=== PATIENT | male | born 1930 | race Caucasian/White ===

== ENCOUNTER 2016-09-21 11:00 | Inpatient (IN) | payer MEDICARE, BC ==
[~2016-09-21] VITALS: Ht 167.6 cm; Wt 101.2 kg
--- NOTE | ~2016-09-21 | CON ---
[facility] AGE[facility] 86 Y [address] ROOM: [place] [address] LOCATION: GPCU ADMIT DATE: 09/21/2016 Consultation DISCHARGE DATE: FAMILY PHYSICIAN: PHYSICIAN, UNKNOWN ATTENDING PHYSICIAN: RUDDY BADILLO DATE OF CONSULTATION: 09/21/2016 REFERRING PHYSICIAN: JADEN ELLIS MD HISTORY OF PRESENT ILLNESS: Mr. Mckinley is an 86-year-old male, who was admitted with history of GI bleed in the setting of bilateral pulmonary emboli from an outside hospital in [place], [place]. As per history available, he states he had an episode of "black stools" about 10 days ago and then with shortness of breath he was found to have bilateral pulmonary emboli at the outside hospital, was placed on Lovenox, and had episode of melena. As per history available, he also "vomited blood" with history of ulcers. He received blood transfusion and was transferred to this facility for further care. I went to see the patient in late afternoon, however, the patient was already gone for IVC filter placement. He also underwent Doppler study of his lower extremities, not revealing any deep venous thrombosis. The patient, however, has multiple comorbidities including "history of ulcers" as well as repair of aortic aneurysm about 10 years ago, which may have bearing to this episode of GI bleed. PAST MEDICAL HISTORY: 1. Coronary artery disease. 2. Hypertension. 3. COPD. 4. Obstructive sleep apnea. 5. Hyperlipidemia. 6. History of "ulcers.". 7. Obesity. PAST SURGICAL HISTORY: 1. Aortic aneurysm repair. 2. Coronary artery bypass graft surgery as well as coronary stenting. 3. Bilateral knee replacement. 4. Right total hip replacement. MEDICATIONS: On admission included; 1. Aspirin. [facility] AGE: 86 Y [address] ROOM: [place] [address] LOCATION: GPCU ADMIT DATE: 09/21/2016 Consultation DISCHARGE DATE: FAMILY PHYSICIAN: PHYSICIAN, UNKNOWN ATTENDING PHYSICIAN: RUDDY BADILLO 2. Tenormin. 3. Lantry-3. 4. Lactulose. 5. Lisinopril. 6. Amiodarone. 7. Lipitor. 8. Placed on Protonix drip. SOCIAL HISTORY: Remote smoking, quit in 1979. Denies alcohol use. Recently, he came back from a visit from [place]. ALLERGIES: THIAZIDE AND SULFA. REVIEW OF SYSTEMS: The 10-point review of systems is otherwise negative except as noted above. PHYSICAL EXAMINATION: GENERAL: Elderly male, in no acute distress. He is lying flat in bed. He is awake, alert, and appropriate. VITAL SIGNS: As noted, are presently stable. HEENT: Atraumatic and normocephalic. Pupils are round and reactive. Nonicteric sclerae. NECK: No JVD. No thyromegaly. No lymphadenopathy. CHEST: Bilateral poor air entry. HEART: S1 and S2 normal. ABDOMEN: Nondistended and obese without palpable tenderness or masses. EXTREMITIES: Mild edema. NEUROLOGIC: Awake, alert, and appropriate without any focal deficits. LABORATORY DATA: Labs are reviewed and showing hemoglobin of 9.3 and hematocrit of 28.5. Chemistry panel reveals BUN of 66 and creatinine of 1.1. Liver function tests are otherwise normal. PT/INR of 1.0. ASSESSMENT AND PLAN: This is an 86-year-old male with history of gastrointestinal bleed, possible presyncope, presenting with melena as well as "throwing up blood," suggestive of upper gastrointestinal origin. This is in the face of anticoagulation, previous history of "ulcers" as well as aortic aneurysm repair remotely. Main concern here will be bleeding ulcer with high-risk stigmata as well as possibility of an aortoenteric fistula. The patient seems to be stabilized for medical therapy, however, needs urgent endoscopy for diagnostic and therapeutic purposes. PATIENT'S NAME: LUZMA MOTA [facility] AGE: 86 Y [address] ROOM: [id number] [place] [id number] [facility] AD[facility] DATE: 09/21/2016 Consultation DISCHARGE DATE: FAMILY PHYSICIAN: PHYSICIAN, UNKNOWN ATTENDING PHYSICIAN: RUDDY BADILLO I explained to the patient as well as the family present in the room the procedure of upper endoscopy as well as extension of the procedure to enteroscopy to go further into the third part of the duodenum if no upper gastrointestinal lesion is found. Further recommendations pending the results of these studies. Thank you for this consult. JADEN ELLIS MD AM/jody /[id number] d: 09/21/161941 t: 09/24/16 1522, CONSULTATION REPORT
--- NOTE | ~2016-09-21 | CATH ---
Peripheral Interventional Report Demographics Patient Name NAKUL Regalado Gender Male Date of 1930 Age 86 year(s) Patient Number [id number] Date of Study 09/21/2016 Visit Number [id number] Room Number G6[address] [place] [id number] Ht 167.64 cm Wt 100 kg Referring Zach Gustafson Charlee Primary Physician Physician Performing [facility] Secondary Physician Physician Lili MARTIN Diagnostic [facility] Assisting Physician Physician Lili MARTIN Interventional [facility] Physician Building Consultant Physician Lili MARTIN Findings and Conclusions Peripheral Findings and Conclusions s/p successful IVC filter placement, retrievable celect cook filter for h/o acute bilateral PE's in a patient with acute GI bleed, and inability to anticoagulate. He has cardiopulmonary compromise, COPD on O2 at night and h/o CABG. IVC filter is indicated. Peripheral Recommendations Please w/u GI cause for bleeding and hopefully he will be able to get treatment for that and we can start anticoagulation after GI work up. It is imperative to start anticoagulation if able to for PE as soon as possible. Pt tolerated the procedure well without any acute complications. Procedure Description The patient was brought to the diagnostic cardiac catheterization-EP laboratory in the fasting, non-sedated state. Informed consent was obtained in the written and verbal form after the risks and benefits were explained. The patient had no further questions and agreed to proceed. The planned puncture-incision site(s) were shaved and prepped with Chloroprep and draped in the usual sterile manner. Conscious sedation and pain control medications were delivered by a registered nurse under physician guidance. Surface ECG rhythm, blood pressure measurement, and pulse oximetry were monitored throughout the procedure. Right femoral vein access obtained using US guidance and micropuncture needle. Inferior Venacava Filter Placement: After an Inferior Venocavagram was performed an IVC filter was placed below the level of the renal veins. Post filter placement revealed good position and no extravasation of contrast from IVC. Hemostasis: The sheath(s) was removed and manual compression was performed. Hemostasis was achieved. The patient was transferred to the nursing floor with continuous monitoring via cart accompanied by a nurse. The patient left the laboratory in stable condition. Procedure Procedure Type Peripheral vascular Intervention:IVC Filter:, Insertion Indications: PE. The procedure was explained in detail to the patient. Risks, complications and alternative treatments were reviewed. Written consent was obtained. Medications Reviewed with Patient prior to Procedure. Angiographic Findings Procedure Data Procedure Date Date: 09/21/2016Start: 04:48 PMEnd: 05:12 PM Entry Locations - Antegrade Percutaneous access was performed through the Right Femoral vein (Primary location). A 4 Fr sheath was inserted. Hemostasis was successfully obtained using Manual Compression. Closure Comments: Manual pressure held by Nikos . Procedure Medications Order and Administration + + +-------+------+ !Time !Medication !Dosage !Route ! + + +-------+------+ !09/21/2016 04:57 PM !Fentanyl !25 mcg !I.V. ! + + +-------+------+ Contrast Material - Isovue 24797 ml Fluoroscopy Time: Diagnostic: 2:06 minutes. Total: 2:06 minutes. Fluoroscopy Dose: Diagnostic: 199 mGy. Total: 199 mGy. Estimated Blood Loss: 45 ml. Medical History Allergies - Sulfa. - Other:(Thiazides, Hydrochlorothiazide). Risk Factors The patient risk factors include:prior PCI;prior CABG;treated hypercholesterolemia, treated hypertension, family history of premature CAD, chronic lung disease, last creatinine: 1.1 mg/dl, creatinine clearance: 69.44 ml/min, dyslipidemia and prior NM . Admission Data Admission Date: 09/21/2016 Admission Time: 12:23 PM Admit Source: Transfer acute care facility Insurance Payors: Medicare. Hemodynamics Condition: Rest O2 Consumption: Estimated: 265.19Heart Rate: 107 bpm Shunts Oxygen Values O2 Consumption 265.19 Signatures dtt: LILI FAITH dtd: 09/21/16 7618 Physician Self Edit
--- NOTE | ~2016-09-21 | CON ---
[facility] 86 Y [address] ROOM: [place] [address] LOCATION: GPCU ADMIT DATE: 09/21/2016 Consultation DISCHARGE DATE: FAMILY PHYSICIAN: PHYSICIAN, UNKNOWN ATTENDING PHYSICIAN: RUDDY BADILLO DATE OF CONSULTATION: 09/21/2016 REFERRING PHYSICIAN: JADEN ELLIS MD REASON FOR CARDIOLOGY CONSULT: Pulmonary embolus and need for evaluation for IVC filter. HISTORY OF PRESENT ILLNESS: This is an 86-year-old male who is transferred from [place], [place] after an abrupt onset of shortness of breath, dizziness, and diaphoresis. Evaluation in the outside emergency department, found that he had bilateral pulmonary embolus. Also during his evaluation he was noted to be having melena stools as well as ramona red blood stools. His hemoglobin in [place] 10.9. He has no complaints of chest pain. He does complain of shortness of breath, nausea, vomiting, and diarrhea. Of note, he is afebrile and complains of no palpitations or syncope. Due to this new finding of GI bleed with the presence of pulmonary embolus, we have been asked to evaluate the patient for a possible IVC filter placement. PAST MEDICAL HISTORY: 1. Coronary artery disease. 2. Hyperlipidemia. 3. Hypertension. 4. COPD. 5. Obstructive sleep apnea. 6. Chronic constipation. 7. B12 deficiency. 8. 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 PAST SURGICAL HISTORY: 1. Aortic aneurysm repair in 2004. 2. Coronary artery bypass grafting x3 vessels in 1988. 3. Coronary artery stenting in 1999. 4. Incisional hernia repair in 2006. 5. Bilateral knee replacement in 2004 and in 2005. FAMILY HISTORY: The patient's mother due to leukemia. His father due to a myocardial infarction. PAT[facility]GE: 86 Y [address] ROOM: [place] [address] LOCATION: GPCU ADMIT DATE: 09/21/2016 Consultation DISCHARGE DATE: FAMILY PHYSICIAN: PHYSICIAN, UNKNOWN ATTENDING PHYSICIAN: RUDDY BADILLO SOCIAL HISTORY: The patient is a former cigarette smoker. He smoked half a pack per day for a total of 20 years. He quit smoking in 1979. He denies alcohol or illicit drug use. CURRENT MEDICATIONS: 1. Asmanex two puffs inhaled in the evening. 2. Spiriva one puff inhaled in the evening. 3. Protonix 80 mg IV. 4. Amiodarone 100 mg p.o. daily. 5. Enulose 30 mL p.o. daily. 6. Lipitor 80 mg p.o. daily in the evening. 7. Metamucil 1 packet p.o. daily. 8. Prinivil 10 mg p.o. daily. 9. Tenormin 12.5 mg p.o. daily. 10. Multivitamin 1 tablet p.o. daily. 11. Vitamin B12 500 mcg p.o. daily. 12. Triacet topical cream twice daily. MEDICATION ALLERGIES: 1. Thiazide causing rash. 2. Sulfa. REVIEW OF SYSTEMS: Pertinent positive review of systems listed in HPI. All other review of systems evaluated and negative. PHYSICAL EXAMINATION: VITAL SIGNS: Temperature 98.3, pulse 95, respirations 18, blood pressure 119/57, O2 saturation 94% on 4 L nasal cannula. The patient weighs 100 kg. SKIN: [place], warm, and dry. EYES: Sclerae clear. No xanthelasmas. ENT: Oral mucosa is pink and moist. No jugular venous distention. No carotid bruits. CHEST: Respirations are even and unlabored. LUNGS: Clear to auscultation. He does have diminished breath sounds to bilateral lower lobes. HEART: Regular rate and rhythm. Normal S1 and S2. No murmurs, rubs, or gallops. ABDOMEN: Soft and nontender, but obese. MUSCULOSKELETAL: Gait is normal. EXTREMITIES: Peripheral pulses palpable. No clubbing or cyanosis noted. Does have trace lower extremity edema present. PSYCHIATRIC: Alert and oriented. Mood and affect are appropriate. PATIENT'S NAME: LUZMA MOTA [facility] AGE: 86 Y [address] ROOM: G[address] [place], [place] [address] [facility] ADMIT DATE: 09/21/2016 Consultation DISCHARGE DATE: FAMILY PHYSICIAN: PHYSICIAN, UNKNOWN ATTENDING PHYSICIAN: RUDDY BADILLO IMPRESSION AND PLAN: Per Dr. Lili Ponce: 1. Bilateral pulmonary embolus. 2. Acute gastrointestinal bleed. 3. History of coronary artery disease with coronary artery bypass grafting history. He has no complaints of angina currently. 4. Chronic obstructive pulmonary disease. 5. Obstructive sleep apnea. 6. Hypertension. 7. Hyperlipidemia. Once again, this is an 86-year-old male with acute GI bleed as well as a bilateral pulmonary embolus. With his history of coronary artery bypass grafting and aortic aneurysm repair, and o2 dependant copd, he is at high risk for cardiopulmonary compromise with another PE. We will review his CT results from the outside hospital. If there indeed is pulmonary embolus, we will proceed with IVC filter placement, due to inability to anticoagulate due to GI bleed. This case was discussed between Dr. Lili Ponce and Dr. Dia, vascular surgeon, and it has been determined that the benefits outweigh the risks, to proceed with IVC filter, if truly has a pulmonary embolus present. The risks and benefits of the procedure were discussed between Dr. Lili Ponce, the patient, and his family. They are agreeable to the procedure and there were no questions at this time. We will continue to monitor, evaluate, and treat as appropriate. Thank you for this consult. Thank you for allowing [facility] to interact in the care of the patient. DEEP JIMENEZ APRN FOR MD ARIADNE BRITTON/jody /[id number] d: 09/21/16 1613 t: 09/27/16 1224, CONSULTATION REPORT
--- NOTE | ~2016-09-21 | ECHO ---
Transthoracic Echocardiography Report (TTE) Demographics Patient Name LUZMA MOTA Date of Study 09/24/2016 Patient Number [id number] Visit Number [id number] Date of 1930 Room Number G6326 Accession Number [id number] Gender Male Age 86 year(s) Referring Zach Deshpande Operator Helper Brandi Tom RVT, Physician MD DEEPTI Romo Physician Interpreting Olivier Menjivar MD Wood Veneer Taper Physician Supervising Ordering Physician Zach Deshpande MD/ELIAS MARTIN Nurse Stress Programming Specialist Conclusions Contractility Score Summary At rest the following contractility abnormalities were noted: Hypokinesis of the Mid infero-lateral, the Basal infero-lateral, the Basal infero-septal and the Basal inferior segments. Contractility of all other segments appeared normal. Summary Technically difficult exam. The estimated left ventricular ejection fraction is 55%. The left ventricle is normal in size . Mild to moderate concentric left ventricular hypertrophy. Diastolic assessment reveals Grade II pseudonormal diastolic function . Mild to moderately dilated right ventricle. The left atrium is severely dilated. The right atrium is moderate to severely dilated. IVC measures 2.20 cm with inspiratory collapse. Mild mitral regurgitation by color Doppler. Mild tricuspid regurgitation by color Doppler. Procedure Type of Study TTE procedure:2D Echocardiogram, M-Mode, Doppler , Color Doppler. Procedure Date Date: 09/24/2016 Start: 09:52 AM Study Location: Inpatient Portable Technical Quality: Fair due to body habitus. Indications:Shortness of breath. Appropriate Use Criteria: 9 Patient Status: Routine HR: 80 bpm BP: 127/60 mmHg Allergies - Sulfa. - Other:(Thiazides, Hydrochlorothiazide). M-Mode/2D Measurements LV Diastolic Dimension: 5.42 cm LV Systolic Dimension: 3.58 cm LV Septum Diastolic: 1.37 cm LV PW Diastolic: 1.29 cm AO Root Dimension: 3.2 cm Cardiac Output: 6.35 l/min LA Dimension: 5.1 cm LVOT: 2.3 cm LVOT VTI: 19.1 cm RV Base: 3.88 cm LV Stroke volume: 79.32 ml RV Length: 7.58 cm TAPSE: 1.97 cm TDI-S': 15.4 cm/s Doppler Measurements AV Peak Velocity: 1.5 m/s MV Peak E-Wave: 0.76 m/s AV Peak Gradient: 9 mmHg MV Peak A-Wave: 0.56 m/s AV Mean Gradient: 7 mmHg MV E/A Ratio: 1.36 LVOT Peak Velocity: 0.94 m/s MV Deceleration Time: 264 msec TR Velocity:2.5 m/s PV Peak Velocity: 1.3 m/s TR Gradient:25 mmHg PV Peak Gradient: 6.76 mmHg Estimated RAP:8 mmHg Estimated PASP: 33 mmHg Estimated RVSP: 33 mmHg A' Septal Velocity: 0.08 m/s E' Septal Velocity: 0.09 m/s A' Lateral Velocity: 0.1 m/s E' Lateral Velocity: 0.1 m/s Findings Left Ventricle The left ventricle is normal in size . Mild to moderate concentric left ventricular hypertrophy. Right Ventricle Mild to moderately dilated right ventricle. Normal right ventricular function. Left Atrium The left atrium is severely dilated. Right Atrium The right atrium is moderate to severely dilated. IVC measures 2.20 cm with inspiratory collapse. Mitral Valve Mild-moderate mitral regurgitation by color Doppler. Aortic Valve The aortic valve is mildly sclerotic. Tricuspid Valve Mild tricuspid regurgitation by color Doppler. Pulmonic Valve The pulmonic valve is not well visualized. Trivial pulmonic valve regurgitation by color Doppler. Pericardial Effusion No evidence of pericardial effusion. Miscellaneous Visualized portions of the aortic root appear normal in size. Pleural Effusion No evidence of pleural effusion. Contractility Score LV regional wall motion:(0-Non visualized 1-Normal 2-Hypokinesis 3-Akinesis 4-Dyskinesis 5-Aneurysm) Signature dtt: Otto Aguayo (cardio) dtd: 09/24/16 0952 Physician Self Edit
--- NOTE | ~2016-09-21 | DS ---
PATIENT'S NAME: LUZMA MOTA [facility] AGE: 86 Y [address] ROOM: [address] [place], [place] [address] LOCATION: GPCU ADMIT DATE: 09/21/2016 Discharge Summary DISCHARGE DATE: 09/25/2016 FAMILY PHYSICIAN: Physician, Unknown ATTENDING PHYSICIAN: Janay Serrano PRINCIPAL DIAGNOSES: 1. Acute blood loss anemia. 2. Upper gastrointestinal bleed. 3. Gastric ulcer. 4. Bilateral pulmonary embolism. 5. Chronic hypoxic respiratory failure. 6. Chronic obstructive pulmonary disease, on 2 L of oxygen. 7. Coronary artery disease. 8. Atrial fibrillation. 9. Hypertension. 10. Morbid obesity. HOSPITAL COURSE: This is an 86-year-old gentleman with a past medical history of coronary artery disease, hypertension, COPD, and atrial fibrillation, on amiodarone, but not on any oral anticoagulation, presented to [facility] with bilateral pulmonary emboli noted on CAT scan of the chest. He also had multiple episodes of black stools and was having shortness of breath. He was transferred to the [facility] for further medical care. On arrival here, his hemodynamics were stable with the hemoglobin around 7. Cardiology consultation was made and an inferior vena cava filter was placed. Gastroenterology consultation was made and an upper endoscopy was done, which did show a big gastric ulcer, which was positive for chronic active gastritis on pathology, but was negative for H. pylori. He was placed on Protonix drip and then was later switched to oral Protonix. His hemoglobin did go below 7 twice and he was given 1 unit of PRBC. During the rest of the course of the hospitalization, his hemoglobin and hemodynamics remained stable. Of note, he had diarrhea and we checked for the C. diff on admission to the hospital and he was positive for that and he was treated with Flagyl and he recovered from C. difficile colitis uneventfully. Given this concern of bilateral pulmonary embolism, a DVT study was done, which did not show any deep venous thrombosis in the lower extremities. Echocardiography was done, which showed left ventricular ejection fraction of 35% with [id number] dilatation of the right ventricle. Cardiology, Dr. Aguayo, saw the patient and wanted to see this patient in 1 week and anticipated to start oral anticoagulation at this point. He will be scheduled to follow up with Gastroenterology in 4 weeks to do a re-scope to see the healing of the ulcer and then probably starting him on Coumadin as well. DISCHARGE MEDICATIONS: PATIENT'S NAME: LUZMA MOTA [facility] AGE: 86 Y [address] ROOM: [address] [place], [place] [address] LOCATION: [facility] ADMIT DATE: 09/21/2016 Discharge Summary DISCHARGE DATE: 09/25/2016 FAMILY PHYSICIAN: Physician, Unknown ATTENDING PHYSICIAN: Janay Serrano 1. Centrum Men Silver 1 tablet p.o. every day. 2. Amiodarone 100 mg p.o. every day. 3. Atenolol 12.5 mg p.o. every day. 4. Atorvastatin 80 mg p.o. every night at bedtime. 5. B12, 500 mcg p.o. every day. 6. Guaifenesin 400 mg p.o. every day. 7. Lisinopril 10 mg p.o. every day. 8. Flagyl 500 mg p.o. every 8 hours, stop on 10/02/2016. 9. Fish oil 1000 mg p.o. twice daily. 10. Protonix 40 mg p.o. twice daily. 11. Triamcinolone, apply as instructed. 12. Mometasone 2 puffs inhalation twice daily. 13. Spiriva 1 inhalation every night at bedtime. 14. Aspirin 81 mg p.o. every day. 15. Coenzyme Q10, 150 mg p.o. every day. 16. Garlic 1000 mg p.o. every day. 17. Lactulose 30 mL p.o. every day. 18. soft gel 1 capsule every night at bedtime. 19. 20 mg p.o. every day. 20. Furosemide 40 mg p.o. every day. 21. Psyllium 1 packet p.o. every day. 22. Milk of magnesia 30 mL p.o. every day p.r.n. 23. Tylenol 1000 mg p.o. every 6 hours p.r.n. pain. 24. Selenium sulfide 1 application topical twice daily. The new medication like mentioned metronidazole 500 mg p.o. q.8 hours and Protonix 40 mg p.o. b.i.d. for 12 weeks. ACTIVITY: As tolerated. DIET: Low-sodium diet. FOLLOWUP: As mentioned in the HPI with Dr. Aguayo on 10/04/2016 and GI in 4 to 6 weeks. All questions of the family were answered. I did explain the risk versus benefit of not starting anticoagulation at this point given IVC filter is in place and there is a big gastric ulcer with high likelihood of bleeding. Family and the patient himself understood the risks versus benefit and opted not to do anticoagulation until seen by Dr. Aguayo in [place] in 1 week. I spent 40 minutes in discharge planning, coordinating care, and answering question of the patient. PATIENT'S NAME: LUZMA MOTA [facility] AGE: 86 Y [address] ROOM: [place] [address] LOCATION: [facility] ADMIT DATE: 09/21/2016 Discharge Summary DISCHARGE DATE: 09/25/2016 FAMILY PHYSICIAN: Physician, Unknown ATTENDING PHYSICIAN: Janay Serrano MD SHAVON INIGUEZ/jody /[id number] d: 09/26/16 0243 t: 09/30/16 1507, DISCHARGE SUMMARY
--- NOTE | ~2016-09-21 | ENPV ---
Vascular Lower Extremities DVT Study Procedure Demographics Patient Name LUZMA MOTA Date of Study 09/21/2016 Patient Number [id number] Gender Male Date of 1930 Age 86 Visit Number [id number] Height Accession Number [id number] Weight Room Number G6326 BSA BMI Referring Zach Deshpande Interpreting Jhon Santana MD Physician Physician Rosario Pearson MD Physician Steven Ponce Lpc Physician Lili MARTIN Television Installer Helper Brandi Tom T, [facility] Conclusions Summary TECHNIQUE: The veins of the lower extremities on the right and the left were evaluated from the groin to the ankle using toledo scale, compression, and augmentation. Venous hemodynamics were evaluated with color flow and spectral Doppler. FINDINGS: The deep veins of the legs bilaterally show normal color flow and compressibility without thrombosis. IMPRESSION: NEGATIVE BILATERAL LOWER EXTREMITY VENOUS DOPPLER. Procedure Type of Study: Veins:Lower Extremities DVT Study, Venous Duplex Lower Extremity Bilateral. Indications for Study:Painful Respiration, Pain and Pulmonary embolism. Appropriate Use Criteria:8 Patient Status:STAT. Study Location:Inpatient Portable. Technical Quality:Adequate visualization. - Preliminary reported to:Dr. Cobb at 1420. Velocities are measured in cm/s ; Diameters are measured in cm Right Lower Extremities DVT Study Measurements Right 2D and Doppler Measurements + + + + +------+------+ + !Location !Visualized!Compressibility!Thrombosis!Signal!Reflux!Reflux ! ! ! ! ! ! ! !(sec) ! + + + + +------+------+ + !GSV Thigh !Yes !Yes !None !Phasic! ! ! + + + + +------+------+ + !Common !Yes !Yes !None !Phasic! ! ! !Femoral ! ! ! ! ! ! ! + + + + +------+------+ + !Prox !Yes !Yes !None !Phasic! ! ! !Femoral ! ! ! ! ! ! ! + + + + +------+------+ + !Mid Femoral!Yes !Yes !None !Phasic! ! ! + + + + +------+------+ + !Dist !Yes !Yes !None !Phasic! ! ! !Femoral ! ! ! ! ! ! ! + + + + +------+------+ + !Popliteal !Yes !Yes !None !Phasic! ! ! + + + + +------+------+ + !PTV !Yes !Yes !None !Phasic! ! ! + + + + +------+------+ + !Peroneal !Yes !Yes !None !Phasic! ! ! + + + + +------+------+ + Left Lower Extremities DVT Study Measurements Left 2D and Doppler Measurements + + + + +------+------+ + !Location !Visualized!Compressibility!Thrombosis!Signal!Reflux!Reflux ! ! ! ! ! ! ! !(sec) ! + + + + +------+------+ + !GSV Thigh !Yes !Yes !None !Phasic! ! ! + + + + +------+------+ + !Common !Yes !Yes !None !Phasic! ! ! !Femoral ! ! ! ! ! ! ! + + + + +------+------+ + !Prox !Yes !Yes !None !Phasic! ! ! !Femoral ! ! ! ! ! ! ! + + + + +------+------+ + !Mid Femoral!Yes !Yes !None !Phasic! ! ! + + + + +------+------+ + !Dist !Yes !Yes !None !Phasic! ! ! !Femoral ! ! ! ! ! ! ! + + + + +------+------+ + !Popliteal !Yes !Yes !None !Phasic! ! ! + + + + +------+------+ + !PTV !Yes !Yes !None !Phasic! ! ! + + + + +------+------+ + !Peroneal !Yes !Yes !None !Phasic! ! ! + + + + +------+------+ + Signature dtt: Chiki Ferreira dtd: 09/21/16 1347 Physician Self Edit
--- NOTE | ~2016-09-21 | HP ---
PATIENT'S NAME: LUZMA MOTA [facility] AGE: 86 Y [address] ROOM: [address] [place], [place] [address] LOCATION: GPCU ADMIT DATE: 09/21/2016 History & Physical DISCHARGE DATE: FAMILY PHYSICIAN: PHYSICIAN, UNKNOWN ATTENDING PHYSICIAN: RUDDY BADILLO DATE OF SERVICE: CHIEF COMPLAINT: GI bleed. HISTORY OF PRESENT ILLNESS: This is an an 86-year-old male, with a past medical history of coronary artery disease, status post CABG and status post two stents, AAA status post repair, and history of duodenal ulcer, who was transferred from [place] to [facility] for higher level of care. History was obtained from the patient. He reported that a week and a half ago, that he had some constipation and took some stool softeners for that, and after that, he had one episode of black stool. He also stated that at around the same time that he had some left flank pain, which was on and off . Severity of the left flank pain, the patient rates at 5/10. There was no associated nausea or vomiting. He reported that yesterday, at around 10 a.m. while he was sitting down on his porch, he just did not feel right. He felt sick, so he got up to go into the bathroom. When he got into the bathroom, he felt chills, clammy, and a tingling sensation all over his body, and so he requested the to call the EMS team. On arrival to [facility], the patient was found to have a PE, and he was started on Lovenox. This morning, the patient reported that he felt better this morning. However, hemoglobin was observed to have dipped and patient had the passage of black stool, and so he was transfused with two units of PRBC and he was transferred over to [facility]. On arrival to [facility], while patient was being prepped, he had an episode of vomiting of bright red blood, and also had another episode of passage of black stool. He denies headache. He denies dizziness. He denies fever. 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 He denies any family history of blood clot. He denies urinary symptoms. He denies chest pain. He denies neck pain or back pain. REVIEW OF SYSTEMS: The 13 elements of review of systems were asked, and are as documented in the HPI. The others are negative. PAST MEDICAL HISTORY: Includes 1. Coronary artery disease, status post CABG and x2 stents after that. PATIENT'S NAME: LUZMA MOTA [facility] AGE: 86 Y [address] ROOM: [address] [place], [place] [address] [facility] ADMIT DATE: 09/21/2016 History & Physical DISCHARGE DATE: FAMILY PHYSICIAN: PHYSICIAN, UNKNOWN ATTENDING PHYSICIAN: RUDDY BADILLO 2. AAA, status post repair. 3. COPD. 4. Osteoarthritis. 5. History of duodenal ulcer. 6. Constipation. 7. Dyslipidemia. PAST SURGICAL HISTORY: Includes 1. AAA repair. 2. Three-vessel bypass. 3. Bilateral total knee arthroplasty. 4. Right total hip replacement. SOCIAL HISTORY: He stopped smoking in 1979. He smoked for about thirty years half a pack per day. He denies use of alcohol. He denies use of any illicit drugs. FAMILY HISTORY: Mother at age of 79, had leukemia. Father also in his 70s, had some heart problem. PHYSICAL EXAMINATION: VITAL SIGNS: Temperature was 98.3, blood pressure was 119/57, oxygen saturation was 95% on 4 L of nasal cannula, pulse was 95, and respiratory rate was 12. GENERAL: Revealed a pleasant, elderly, male, who is alert, awake, and oriented x3, not in any form of respiratory distress or painful distress. NEUROLOGIC: Cranial nerves II through XII intact bilaterally. Sensory was intact bilaterally. Power in both upper extremities was 4. Power in both lower extremities was 2. HEENT: Normocephalic and atraumatic. Pupils were equal and reactive to light bilaterally. Pharynx is normal. Mucosa was slightly dry. Ears: No obvious ear discharge or drainage. NECK: Supple. No area of tenderness. No lymphadenopathy. CARDIOVASCULAR SYSTEM: Normal S1 and S2. Regular rate and rhythm. CHEST: Clear to auscultation bilaterally. ABDOMEN: Soft and nondistended. No area of tenderness. He has a midline healed surgical scar. Positive bowel sounds. EXTREMITIES: There is no joint swelling or erythema or tenderness. SKIN: No rash or skin breakdown. LABORATORY DATA: Labs at the referral hospital, H and H after transfusion with two units of PRBC are 10.3/32.1 and WBC is 15.9. PATIENT'S NAME: LUZMA MOTA [facility] AGE: 86 Y [address] ROOM: [place] [address] [facility] ADMIT DATE: 09/21/2016 History & Physical DISCHARGE DATE: FAMILY PHYSICIAN: PHYSICIAN, UNKNOWN ATTENDING PHYSICIAN: RUDDY BADILLO ASSESSMENT AND PLAN: This is an 86-year-old male with gastrointestinal bleed, 1. Upper gastrointestinal bleed present on admission, probably from his duodenal ulcer, which may have been precipitated by the anticoagulation, which he was started on. We will get a GI consult. We will monitor his H and H closely. 2. Acute blood loss anemia. His last H and H was 10.3. We will repeat an H and H now, given the fact that the patient has had another episode of black stool and bright red blood, and has recently vomited blood. Present on admission. 3. Acute hypoxic respiratory failure, probably from the acute blood loss anemia. Present on admission. 4. Bilateral pulmonary embolism per report by the transferring doctor. We will get the official report of the chest which was done, and we will hold off on anticoagulation secondary to the bleeding. We will get a Cardiology consult for an IVC filter placement. Present on admission. 5. Leukocytosis present on admission. This maybe reactive. However, we will check UA and urine culture, and other sepsis workup as well is going to be done, but for now, we will hold off on the antibiotics, but if the patient develops a temperature of 100.4 and over, we will start the patient on antibiotics. 6. Coronary artery disease, status post CABG and stents. No angina right now. 7. Abdominal aortic aneurysm, status post repair. The line of management was explained to the patient, whose questions were answered, and he had no further questions at this time. RUDDY BADILLO MD ODO/modl /[id number] D: [id number] T: [id number] HISTORY & PHYSICAL
[2016-09-21] MEDS ORDERED: TENORMIN25 MG PO (13:35)
[2016-09-21] MEDS ORDERED: ASPIRIN EC81 MG PO (13:35)
[2016-09-21] MEDS ORDERED: CO Q-10150 MG PO (13:35)
--- NOTE | 2016-09-21 13:37 | NUR ---
PT is 86 y/o male admit for bilat pulm emboli and bloody stools for hospitalist. Allergy to sulfa,HCTZ,thiazide. PT alert and oriented x3. Resides at home with his . Hx CABG,htn,hypercholest,stents x2,MO,AAA repair,edema in legs and feet,COPD,sleep apnea-didn't bring CPAP with him, pneumonia,gerd. Pt states he and his spent the weekend in [place] and he felt somewhat constipated and took a stimulant of some kind and had 1 black stool on Saturday after they returned home. He reports his stools were ok on and Sat. Yesterday am, he felt constipated again and took another stimulant. Shortly after he states he got the cold sweats and didn't feel good so his called the unit and he was taken to [facility]. He states he had 1 black stool around midnight last noc. After arrival here, he's had another bloody stool and some bloody emesis. Family at bedside.
[2016-09-21] MEDS ORDERED: FISH OIL 1,0001 EAC1 PO (13:38)
[2016-09-21] MEDS ORDERED: GARLIC1000 MG PO (13:39)
[2016-09-21] MEDS ORDERED: ASMANEX220 MC1 INH (13:40)
[2016-09-21] MEDS ORDERED: CONSTULOSE10 GM/15 M PO (13:40)
[2016-09-21] MEDS ORDERED: PROSTAMEN SOFT1 EACH PO (13:41)
[2016-09-21] MEDS ORDERED: SPIRIVA HANDIHA1 KIT INH (13:41)
[2016-09-21] MEDS ORDERED: TRIAMCINOLONE 080 GM TOP (13:42)
[2016-09-21] MEDS ORDERED: LIPITOR40 MG PO (13:43)
[2016-09-21] MEDS ORDERED: GUAIFENESIN400 MG PO (13:44)
[2016-09-21] MEDS ORDERED: LUTEIN20 M1 PO (13:44)
[2016-09-21] MEDS ORDERED: CENTRUM SILVER1 TAB PO (13:45)
[2016-09-21] MEDS ORDERED: LASIX40 MG PO (13:46)
[2016-09-21] MEDS ORDERED: PRINIVIL (ZESTR20 MG PO (13:46)
[2016-09-21] MEDS ORDERED: MILK OF MA400 MG/5 M PO (13:47)
[2016-09-21] MEDS ORDERED: METAMUCIL PACKE1 PKT PO (13:47)
[2016-09-21] MEDS ORDERED: B-12500 MCG PO (13:48)
[2016-09-21] MEDS ORDERED: TYLENOL EXTRA500 MG PO (13:48)
[2016-09-21] MEDS ORDERED: SELENIUM SULFI120 ML TOP (13:49)
[2016-09-21] MEDS ORDERED: CORDARONE,PACE200 MG PO (13:53)
[2016-09-21 15:40] LABS: HEMATOCRIT 28.5 % (33.0-50.0); HEMOGLOBIN 9.3 g/dL (11.0-16.0)
[2016-09-21 15:41] LABS: ALBUMIN 2.5 gm/dL (3.5-5.0); ALK PHOS 49 IU/L (33-138); ALT 20 IU/L (12-78); ANION GAP 11.9 (10.0-19.0); AST 16 IU/L (10-40); BLOOD UREA NITROGEN 66 mg/dL (6-24); CALCIUM 7.6 mg/dL (8.5-10.5); CHLORIDE 115 mMol/L (96-110); CO2 24 mMol/L (22-32); CREATININE 1.1 mg/dL (0.6-1.3); ESTIMATED GFR (MDRD EQUATION) > 60; PHOSPHORUS 2.3 mg/dL (2.5-4.9); POTASSIUM 4.9 mMol/L (3.7-5.1); SODIUM 146 mMol/L (135-145); TOTAL BILIRUBIN 0.4 mg/dL (0.0-1.5); TOTAL PROTEIN 5.4 g/dL (6.0-8.4)
[2016-09-21 17:22] LABS: INR - (THERAPEUTIC) 1.02 (0.92-1.07); PROTIME 10.7 SECONDS (9.8-11.4)
--- NOTE | 2016-09-21 17:46 | NUR ---
Significant Event: PT A&O x3. VSS, O2 at 3L per nasal cannula. PT had bloody stool and emesis after arrival to floor. IV to R)upper arm. PT had IVC filter placed, R)groin site c/d/i, back to room at 1715, must lay flat until 1914. NPO. Protonix gtt running, NS running at 75ml/hr. Follow up:
[2016-09-21 22:27] LABS: HEMATOCRIT 28.3 % (33.0-50.0); HEMOGLOBIN 9.2 g/dL (11.0-16.0)
[2016-09-21 22:33] LABS: BILIRUBIN URINE NEGATIVE (NEGATIVE); BLOOD URINE NEGATIVE /UL (NEGATIVE); COLOR URINE YELLOW (YELLOW); GLUCOSE URINE NEGATIVE (NEGATIVE); KETONE URINE NEGATIVE (NEGATIVE); LEUKOCYTES URINE NEGATIVE /UL (NEGATIVE); NITRITE URINE NEGATIVE (NEGATIVE); PROTEIN URINE NEGATIVE (NEGATIVE); SPEC GRAVITY URINE 1.015 (1.003-1.035); TURBIDITY URINE CLEAR (CLEAR); UROBILINOGEN URINE NORMAL (NORMAL)
[2016-09-21 22:43] LABS: ALBUMIN 2.7 gm/dL (3.5-5.0); ALK PHOS 46 IU/L (33-138); ALT 21 IU/L (12-78); AST 15 IU/L (10-40); CALCIUM 7.7 mg/dL (8.5-10.5); CHLORIDE 115 mMol/L (96-110); CO2 23 mMol/L (22-32); CREATININE 1.1 mg/dL (0.6-1.3); ESTIMATED GFR (MDRD EQUATION) > 60; POTASSIUM 4.9 mMol/L (3.7-5.1); TOTAL BILIRUBIN 0.4 mg/dL (0.0-1.5); TOTAL PROTEIN 5.9 g/dL (6.0-8.4)
[2016-09-21 22:47] LABS: ANION GAP 12.9 (10.0-19.0); BLOOD UREA NITROGEN 64 mg/dL (6-24); SODIUM 146 mMol/L (135-145)
[2016-09-22 03:27] LABS: HEMATOCRIT 26.1 % (33.0-50.0); HEMOGLOBIN 8.3 g/dL (11.0-16.0); MCH 30.9 pg (27.0-34.0); MCHC 31.8 gm/dL (32.0-36.5); MPV 9.8 fl (9.4-12.4); PLATELET COUNT 151 K/uL (150-450); RBC 2.69 M/uL (3.50-5.50); WBC 15.5 K/uL (4.0-11.0)
[2016-09-22 03:45] LABS: ALBUMIN 2.6 gm/dL (3.5-5.0); ALK PHOS 42 IU/L (33-138); ALT 18 IU/L (12-78); ANION GAP 10.8 (10.0-19.0); AST 14 IU/L (10-40); BLOOD UREA NITROGEN 60 mg/dL (6-24); CALCIUM 7.6 mg/dL (8.5-10.5); CHLORIDE 115 mMol/L (96-110); CO2 25 mMol/L (22-32); CREATININE 1.1 mg/dL (0.6-1.3); ESTIMATED GFR (MDRD EQUATION) > 60; MAGNESIUM 2.1 mg/dL (1.8-2.6); POTASSIUM 4.8 mMol/L (3.7-5.1); SODIUM 146 mMol/L (135-145); TOTAL BILIRUBIN 0.3 mg/dL (0.0-1.5); TOTAL PROTEIN 5.6 g/dL (6.0-8.4)
--- NOTE | 2016-09-22 04:31 | NUR ---
Significant Event: Patient A/Ox3. VSS on 3-4L NC. Patient was seen by GI last night and taken down for a scope right away. EGD completed, an ulcer was found in patient's stomach, it was injected with epi and cauterized. Upon returning to the floor, patient's vitals were stable. He did have one large bloody stool right after returning, but has not had any since. Urine sent down for UA, still need c-diff sample. NS changed to D5W due to sodium level of 146. Protonix gtt at 10ml/hr. Patient is NPO except for ice chips and medications. Follow up: Continue plan of care
[2016-09-22 04:47] LABS: ABSOLUTE NEUTROPHIL CT (ANC) 8.5 K/uL (1.4-9.0); LYMPHOCYTE # 6.7 K/uL (0.8-4.0); LYMPHOCYTE % 43 %; MONOCYTE # 0.3 K/uL (0.0-1.0); SEGMENTED NEUTROPHIL # 8.5 K/uL (1.4-9.0); SEGMENTED NEUTROPHIL % 55 %
[2016-09-22 09:27] LABS: HEMATOCRIT 27.3 % (33.0-50.0); HEMOGLOBIN 8.3 g/dL (11.0-16.0)
[2016-09-22 16:52] LABS: HEMATOCRIT 22.1 % (33.0-50.0); MPV 9.8 fl (9.4-12.4); RBC 2.35 M/uL (3.50-5.50); RDW-CV 15.9 % (11.9-14.6); WBC 14.7 K/uL (4.0-11.0)
[2016-09-22 16:57] LABS: HEMOGLOBIN 7.2 g/dL (11.0-16.0); MCH 30.6 pg (27.0-34.0); MCHC 32.6 gm/dL (32.0-36.5)
[2016-09-22 16:58] LABS: PLATELET COUNT 90 K/uL (150-450)
[2016-09-22 17:03] LABS: ABSOLUTE NEUTROPHIL CT (ANC) 7.9 K/uL (1.4-9.0); BANDED NEUTROPHIL # 0.3 K/uL (0.0-0.1); BANDED NEUTROPHILS % 2 %; LYMPHOCYTE # 5.1 K/uL (0.8-4.0); LYMPHOCYTE % 35 %; MONOCYTE # 1.5 K/uL (0.0-1.0); SEGMENTED NEUTROPHIL # 7.6 K/uL (1.4-9.0); SEGMENTED NEUTROPHIL % 52 %
--- NOTE | 2016-09-22 18:58 | NUR ---
Significant Event: Alert & oriented. VSS, afebrile, 2-4L O2, SOB with activity. 2 bloody stools this shift, Cdiff positive. Hgb dropped to 7.2, 1 unit pRBCs hung at shift change. Follow up: Recheck H&H after 1 unit of pRBCs given
[2016-09-22 22:10] LABS: HEMATOCRIT 25.2 % (33.0-50.0); HEMOGLOBIN 8.2 g/dL (11.0-16.0)
[2016-09-23 04:27] LABS: HEMATOCRIT 21.4 % (33.0-50.0); MCV 95.5 fl (83.0-98.0); MPV 9.8 fl (9.4-12.4); RBC 2.24 M/uL (3.50-5.50); RDW-CV 15.9 % (11.9-14.6); WBC 10.7 K/uL (4.0-11.0)
--- NOTE | 2016-09-23 04:29 | NUR ---
Significant Event: VSS on 3L O2 per NC. SOB with activity. Afebrile. SBP's 90's-110's. HR's 70's-80's. A/O x3. Up with walker and 1A. Received 1 unit of PRBC's yesterday at 1830. IV to R) upper arm has D5W running at 75 ml/hrs. Order to switch to LR after this bag finishes. Protonix gtt running. Contact isolation for C. diff. No BM's this shift. Need BM sample for H.pylori antigen. Full liquid diet. R) groin site for IVC filter is C/D/I. Order to start Zosyn if temp is greater than 100. Follow up: Continue with plan of care.
[2016-09-23 04:35] LABS: HEMOGLOBIN 6.7 g/dL (11.0-16.0); MCH 29.9 pg (27.0-34.0); MCHC 31.3 gm/dL (32.0-36.5); PLATELET COUNT 126 K/uL (150-450)
[2016-09-23 04:43] LABS: ANION GAP 10.1 (10.0-19.0); BLOOD UREA NITROGEN 42 mg/dL (6-24); CHLORIDE 109 mMol/L (96-110); CO2 27 mMol/L (22-32); ESTIMATED GFR (MDRD EQUATION) > 60; POTASSIUM 4.1 mMol/L (3.7-5.1); SODIUM 142 mMol/L (135-145)
[2016-09-23 04:44] LABS: CALCIUM 7.2 mg/dL (8.5-10.5)
[2016-09-23 05:24] LABS: ABSOLUTE NEUTROPHIL CT (ANC) 4.9 K/uL (1.4-9.0); BANDED NEUTROPHIL # 0.3 K/uL (0.0-0.1); BANDED NEUTROPHILS % 3 %; LYMPHOCYTE # 5.1 K/uL (0.8-4.0); LYMPHOCYTE % 48 %; MONOCYTE # 0.5 K/uL (0.0-1.0); SEGMENTED NEUTROPHIL # 4.6 K/uL (1.4-9.0); SEGMENTED NEUTROPHIL % 43 %
[2016-09-23 09:21] LABS: HEMOGLOBIN 7.9 g/dL (11.0-16.0)
--- NOTE | 2016-09-23 09:25 | NUR ---
CONSULT RECEIVED, PER ROUTINE C-DIFF ORDERS. WILL PROVIDE DIET ED APPROPRIATE, PRIOR TO D/C.
[2016-09-23 15:30] LABS: HEMATOCRIT 23.5 % (33.0-50.0)
[2016-09-23 15:31] LABS: HEMOGLOBIN 7.8 g/dL (11.0-16.0)
--- NOTE | 2016-09-23 19:15 | NUR ---
Significant Event: A&O. VSS, afebrile, 2 L O2. Held antihypertensives. 1 assist. 1 BM this shift. Continue H&H Q6 hours. attempted central line, PICC line RN not available on weekend.
[2016-09-23 21:26] LABS: HEMATOCRIT 23.2 % (33.0-50.0)
[2016-09-23 21:27] LABS: HEMOGLOBIN 7.6 g/dL (11.0-16.0)
--- NOTE | 2016-09-24 03:12 | NUR ---
Significant Event: A&Ox3, VSS on 2L O2. Protonix gtt into right upper arm with no complications. Gtt to be shut off at 0800. Q6hr HGB checks, notify hospitalists after each result, trending down. Denies pain. Transfers with 1PA-SBA, walker/GB to bathroom. No BM this shift. Full liquid diet. Follow up: PICC line placement today.
[2016-09-24 03:28] LABS: HEMATOCRIT 23.5 % (33.0-50.0)
[2016-09-24 03:30] LABS: HEMOGLOBIN 7.7 g/dL (11.0-16.0)
[2016-09-24 03:42] LABS: ANION GAP 12.3 (10.0-19.0); CALCIUM 7.5 mg/dL (8.5-10.5); CHLORIDE 110 mMol/L (96-110); CO2 25 mMol/L (22-32); CREATININE 0.9 mg/dL (0.6-1.3); ESTIMATED GFR (MDRD EQUATION) > 60; POTASSIUM 4.3 mMol/L (3.7-5.1); SODIUM 143 mMol/L (135-145)
[2016-09-24 03:44] LABS: BLOOD UREA NITROGEN 19 mg/dL (6-24)
[2016-09-24 10:19] LABS: HEMATOCRIT 24.3 % (33.0-50.0)
[2016-09-24 10:27] LABS: HEMOGLOBIN 7.8 g/dL (11.0-16.0)
--- NOTE | 2016-09-24 16:59 | NUR ---
Significant Event: A/O x3, cooperative with cares. VSS, SBPs 100-120s, HRs 60-80s, oxygen at 2 liters. No c/o pain. Last Hgb 7.8; changed to every 12 hours. Protonix gtt dc'd; initial dose of oral protonix gtt given. Up with assist of 1 to chair et bathroom. Family in room Follow up: possible d/c tomorrow if Hgb remains stable; next Hgb at 2100
--- NOTE | 2016-09-24 18:06 | NUR ---
Introduced self and role of care management to patient, his and son. Patient and leave on the edge of [place]. He uses a cane at home but has been using a walker here. He does have a walker at home if needed. They hope he will be able to go home. They deny discharge needs. Will follow.
[2016-09-24 21:22] LABS: HEMATOCRIT 24.7 % (33.0-50.0); HEMOGLOBIN 8.1 g/dL (11.0-16.0)
--- NOTE | 2016-09-25 04:00 | NUR ---
Significant Event:PT AAOX3.VERY PLEASANT WITH STAFF AND CARES. DENIES PAIN WHEN ASKED. UP WITH 1 ASSIST GAIT BELT WALKER. DOES WELL WITH TRANSFERS. CONTIENT OF BOWEL AND BLADDER. DOES HAVE 2 BM DURING SHIFT. MAROON IN COLOR. LAST HGB AR 2100 WAS 8.1. CONTINUES TO WEAR 2L NC. LUNG SOUNDS CLEAR/DIMINISHED. EDEMA TO LOWER BILAT LEGS.FULL LIQUID DIET. SL TO LEFT UPPER SHOULDER AREA. USES CALL LIGHT APPROP. Follow up:
[2016-09-25 04:35] LABS: HEMATOCRIT 24.1 % (33.0-50.0); MCV 93.8 fl (83.0-98.0); MPV 9.9 fl (9.4-12.4); RBC 2.57 M/uL (3.50-5.50); RDW-CV 15.9 % (11.9-14.6)
[2016-09-25 04:42] LABS: HEMOGLOBIN 7.9 g/dL (11.0-16.0); MCH 30.7 pg (27.0-34.0); MCHC 32.8 gm/dL (32.0-36.5); PLATELET COUNT 152 K/uL (150-450)
[2016-09-25 04:45] LABS: ANION GAP 10.4 (10.0-19.0); BLOOD UREA NITROGEN 14 mg/dL (6-24); CALCIUM 7.9 mg/dL (8.5-10.5); CHLORIDE 109 mMol/L (96-110); CO2 29 mMol/L (22-32); CREATININE 0.9 mg/dL (0.6-1.3); ESTIMATED GFR (MDRD EQUATION) > 60; POTASSIUM 4.4 mMol/L (3.7-5.1); SODIUM 144 mMol/L (135-145)
[2016-09-25 05:40] LABS: ABSOLUTE NEUTROPHIL CT (ANC) 4.7 K/uL (1.4-9.0); BANDED NEUTROPHIL # 0.4 K/uL (0.0-0.1); BANDED NEUTROPHILS % 4 %; LYMPHOCYTE # 4.7 K/uL (0.8-4.0); LYMPHOCYTE % 47 %; MONOCYTE # 0.1 K/uL (0.0-1.0); SEGMENTED NEUTROPHIL # 4.3 K/uL (1.4-9.0); SEGMENTED NEUTROPHIL % 43 %
[2016-09-25 09:09] LABS: HEMOGLOBIN 7.7 g/dL (11.0-16.0)
[2016-09-25] MEDS ORDERED: FLAGYL500 MG PO (14:29)
[2016-09-25] MEDS ORDERED: PROTONIX40 MG PO (14:30)
--- NOTE | 2016-09-25 16:18 | NUR ---
PATIENT IS A/OX3, VSS ON ROOM AIR DURING THE DAY, WEARS 2L O2 @ NIGHT. DISMISSAL INSTRUCTIONS, NEW MEDICATIONS, OUTPATIENT EGD INSTRUCTIONS GONE OVER WITH PATIENT AND FAMILY. PATIENT HAD QUESTION ON ABOUT SEEING DMITRY AGUILERA APRN IN [place] AND POSSIBLE EGD ALSO. TOLD PATIENT AND FAMILY THEY WOULD HAVE TO DISCUSS THOSE OPTIONS WITH DMITRY AT FOLLOW-UP APT. NEXT WEEK. FOLLOW-UP APPOINTMENTS GONE OVER SEVERAL TIMES WITH PATIENT AND FAMILY ON WHERE THEY ARE AT. NO FURTHER QUESITONS AT THIS TIME. IV TO LEFT SHOULDER REMOVED WITHOUT DIFFICULTLY. ALL BELONGINGS SENT HOME WITH PATIENT AND FAMILY. PATIENT GETS UP SBA WITH WALKER/GAIT BELT.
--- NOTE | 2016-09-25 16:36 | NUR ---
I visited with the patient and his before he was dismissed. I explained the role of the hospitalist and asked if they had any discharge concerns. They were very interested in the hospitalist program and had many questions. They did not have any discharge concerns.
[2016-11-21] MEDS ORDERED: ASPIRIN325 MG PO (15:54)
[2016-11-21] MEDS ORDERED: IRON325 M1 PO (15:58)
[2016-11-21] MEDS ORDERED: ZANTAC (NON-FO150 MG PO (16:07)
[2016-11-21] MEDS ORDERED: CPAP INH (16:10)
[2016-11-21] MEDS ORDERED: OXYGEN M-15 INH (16:11)
[2016-11-26] MEDS ORDERED: PRILOSEC20 MG PO (12:04)
== END 2016-09-25 15:20 | disposition disaster alternative care site (69) | DRG 356 ==
LOC: GPCU 12:23
PROVIDERS: Internal Medicine; ADMIT Hospitalist
PROC: B54DZZZ Ultrasonography of Bilateral Lower Extremity Veins (ICD-10-PCS; principal; 2016-09-21)
PROC: 06H03DZ Insertion of Intraluminal Device into Inferior Vena Cava, Percutaneous Approach (ICD-10-PCS; principal; 2016-09-21)
PROC: 0W3P8ZZ Control Bleeding in Gastrointestinal Tract, Via Natural or Artificial Opening Endoscopic (ICD-10-PCS; principal; 2016-09-21)
PROC: 30233N1 Transfusion of Nonautologous Red Blood Cells into Peripheral Vein, Percutaneous Approach (ICD-10-PCS; 2016-09-22)
PROC: B246ZZZ Ultrasonography of Right and Left Heart (ICD-10-PCS; 2016-09-24)
DX: K25.0 Acute gastric ulcer with hemorrhage (principal); I26.99 Other pulmonary embolism without acute cor pulmonale; J96.01 Acute respiratory failure with hypoxia; D62 Acute posthemorrhagic anemia; D72.829 Elevated white blood cell count, unspecified; E78.5 Hyperlipidemia, unspecified; G47.33 Obstructive sleep apnea (adult) (pediatric); I25.10 Atherosclerotic heart disease of native coronary artery without angina pectoris; I11.9 Hypertensive heart disease without heart failure; J44.9 Chronic obstructive pulmonary disease, unspecified; M19.90 Unspecified osteoarthritis, unspecified site; Z95.1 Presence of aortocoronary bypass graft; Z96.641 Presence of right artificial hip joint; Z96.653 Presence of artificial knee joint, bilateral; Z68.35 Body mass index [BMI] 35.0-35.9, adult; Z87.891 Personal history of nicotine dependence; E66.01 Morbid (severe) obesity due to excess calories; I48.91 Unspecified atrial fibrillation
CPT/HCPCS: A9270; C1880; C9113; G0237; J1364; J1644; J2405; J3010; J7030; J7040; J7050; J7060; J7120; P9016

== ENCOUNTER → 2016-09-21 | Outpatient (CLI) | payer MEDICARE, BC ==
[~2016-09-21] MED LIST: ASMANEX220 MC1 INH; ASPIRIN EC81 MG PO; ASPIRIN325 MG PO; B-12500 MCG PO; CENTRUM SILVER1 TAB PO; CO Q-10150 MG PO; CONSTULOSE10 GM/15 M PO; CORDARONE,PACE200 MG PO; CPAP INH; FISH OIL 1,0001 EAC1 PO; FLAGYL500 MG PO; GARLIC1000 MG PO; GUAIFENESIN400 MG PO; IRON325 M1 PO; LASIX40 MG PO; LIPITOR40 MG PO; LUTEIN20 M1 PO; METAMUCIL PACKE1 PKT PO; MILK OF MA400 MG/5 M PO; OXYGEN M-15 INH; PRILOSEC20 MG PO; PRINIVIL (ZESTR20 MG PO; PROSTAMEN SOFT1 EACH PO; PROTONIX40 MG PO; SELENIUM SULFI120 ML TOP; SPIRIVA HANDIHA1 KIT INH; TENORMIN25 MG PO; TRIAMCINOLONE 080 GM TOP; TYLENOL EXTRA500 MG PO; ZANTAC (NON-FO150 MG PO
== END | disposition disaster alternative care site (69) ==
LOC: GAMB 12:07
DX: I95.9 Hypotension, unspecified (principal); K92.1 Melena; E86.1 Hypovolemia
CPT/HCPCS: A0422; A0425; A0428; J0171

== ENCOUNTER → 2016-11-26 | Day surgery (SDC) | payer MEDICARE, BC ==
[~2016-11-26] VITALS: Ht 167.6 cm; Wt 107.2 kg
== END | disposition disaster alternative care site (69) ==
LOC: GPOC 11-13 16:00 → GEND 09:19 → GPOC 09:30
PROC: 0DB68ZX Excision of Stomach, Via Natural or Artificial Opening Endoscopic, Diagnostic (ICD-10-PCS; principal; 2016-11-26)
DX: K29.50 Unspecified chronic gastritis without bleeding (principal); M19.90 Unspecified osteoarthritis, unspecified site; K21.9 Gastro-esophageal reflux disease without esophagitis; I25.10 Atherosclerotic heart disease of native coronary artery without angina pectoris; E78.00 Pure hypercholesterolemia, unspecified; I10 Essential (primary) hypertension; I25.2 Old myocardial infarction; J44.9 Chronic obstructive pulmonary disease, unspecified; G47.30 Sleep apnea, unspecified; Z99.89 Dependence on other enabling machines and devices; Z98.41 Cataract extraction status, right eye; Z98.42 Cataract extraction status, left eye; Z96.652 Presence of left artificial knee joint; Z79.899 Other long term (current) drug therapy; Z79.82 Long term (current) use of aspirin; Z88.2 Allergy status to sulfonamides; Z88.8 Allergy status to other drugs, medicaments and biological substances
CPT/HCPCS: J2001; J7030